=== PATIENT | female | born 1960 | race Caucasian/White ===

== ENCOUNTER 2023-09-05 09:30 | Outpatient (CLI) | payer MEDICARE | END 2023-09-05 09:31 | disposition home or self-care (01) | LOC: SCSMRI 09:30 | PROVIDERS: ATTEND Orthopaedic Surgery | DX: M50.122 Cervical disc disorder at C5-C6 level with radiculopathy (principal); M50.123 Cervical disc disorder at C6-C7 level with radiculopathy; M47.22 Other spondylosis with radiculopathy, cervical region | CPT/HCPCS: 72040; 72141 ==

== ENCOUNTER 2024-10-18 11:42 | Outpatient (CLI) | payer MEDICARE | END 2024-10-18 11:43 | disposition home or self-care (01) | LOC: SCSRAD 11:42 | PROVIDERS: ATTEND Orthopaedic Surgery | DX: M25.561 Pain in right knee (principal); S72.401A Unspecified fracture of lower end of right femur, initial encounter for closed fracture ==

== ENCOUNTER 2024-11-18 10:54 | Outpatient (CLI) | payer MEDICARE | END 2024-11-18 10:55 | disposition home or self-care (01) | LOC: SCSRAD 10:54 | PROVIDERS: ATTEND Orthopaedic Surgery | DX: S79.101D Unspecified physeal fracture of lower end of right femur, subsequent encounter for fracture with routine healing (principal); M25.561 Pain in right knee ==